=== PATIENT | female | born 1995 | race African-American/Black ===

== ENCOUNTER 2017-01-18 11:48 | Emergency (ER) | payer BC ==
[2017-01-18 11:54] VITALS: BP 98/78
[2017-01-18] MEDS ORDERED: Lidocaine 1%* 5 ML VIAL ONE (12:00)
--- NOTE | 2017-01-18 12:43 | RAD ---
Indication: Crush injury RIGHT index finger from the DIP distal tip. Comparison: No relevant prior exams available on the [facility] PACS for comparison. Technique: 3 views RIGHT second finger REPORT AND IMPRESSION: Negative for fracture or malalignment. Unremarkable soft tissue contours. No conspicuous foreign body.
--- NOTE | 2017-01-18 13:02 | ED ---
Upper Extremity Pain - HPI Summary HPI Summary: Patient presents to the ED after crushing her right distal fingertip in the garage door. She notes to immediate pain. Injury occurred 30 minutes prior to arrival. Pain is 5/10, constant and throbbing. No lesions or disruptions in the skin. She has never injured the digit before. Pulses +2 bilaterally and cap refill < 2 sec. Denies numbness, tingling, temperature or color changes to the area. No swelling noted. She has full ROM and is able to move the digit at the PIP and DIP joints with minimal discomfort. - History of Current Complaint Chief Complaint: EDExtremityUpper Stated Complaint: FINGER INJURY Time Seen by Provider: 01/18/17 12:22 Hx Obtained From: Patient Mechanism Of Injury: Direct Blow Onset/Duration: Started Minutes Ago Timing: Constant Severity Initially: Mild Severity Currently: Mild Pain Location: Finger Character: Aching, Throbbing Aggravating Factor(s): Movement, Lifting, Flexion, Extension Alleviating Factor(s): Rest, Ice Associated Signs & Symptoms: Positive: Negative - Risk Factors Non-Orthopedic Risk Factor: Negative DVT Risk Factors: Negative Septic Arthritis Risk Factor: Negative Compartment Syndrome Risk Factors: Pain PMH/Surg Hx/FS Hx/Imm Hx Previously Healthy: Yes - Immunization History Hx Pertussis Vaccination: No Immunizations Up to Date: Unable to Obtain/Confirm Infectious Disease History: No Infectious Disease History: Denies: Traveled Outside the [place] in Last 30 Days - Social History Occupation: Student Lives: With Family Alcohol Use: None Hx Substance Use: No Substance Use Type: Reports: None Hx Tobacco Use: No Smoking Status (MU): Never Smoked Tobacco Review of Systems Constitutional: Negative Eyes: Negative ENT: Negative Cardiovascular: Negative Genitourinary: Negative Positive: see HPI Positive: Arthralgia - right index distal finger tip Skin: Negative All Other Systems Reviewed And Are Negative: Yes Physical Exam Triage Information Reviewed: Yes Vital Signs On Initial Exam: Initial Vitals Temp Pulse Resp BP Pulse Ox 98.4 F 68 16 98/78 100 01/18/17 11:50 01/18/17 11:50 01/18/17 11:50 01/18/17 11:50 01/18/17 11:50 Completion Of Physical Exam Limited Due To: Dementia Appearance: Positive: Well-Appearing, Well-Nourished Skin: Positive: Warm, Skin Color Reflects Adequate Perfusion Head/Face: Positive: Normal Head/Face Inspection, Scalp Eyes: Positive: EOMI, JOSELYN Neck: Positive: Supple, No Lymphadenopathy Respiratory/Lung Sounds: Positive: Clear to Auscultation, Breath Sounds Present Cardiovascular: Positive: Normal, RRR, Pulses are Symmetrical in both Upper and Lower Extremities Musculoskeletal: Positive: Normal, Strength/ROM Intact, Pain @ - distal right finger DIP joint Neurological: Positive: Speech Normal Psychiatric: Positive: Normal Diagnostics - Vital Signs Vital Signs Temp Pulse Resp BP Pulse Ox 01/18/17 11:50 98.4 F 68 16 98/78 100 - Laboratory Lab Statement: Any lab studies that have been ordered have been reviewed, and results considered in the medical decision making process. Course/Dx - Course Course Of Treatment: Injury occurred 30 minutes prior to arrival. Pain is 5/10 , constant and throbbing. No lesions or disruptions in the skin. She has never injured the digit before. Pulses +2 bilaterally and cap refill < 2 sec. Denies numbness, tingling, temperature or color changes to the area. No swelling noted. She has full ROM and is able to move the digit at the PIP and DIP joints with minimal discomfort. REPORT AND IMPRESSION: Negative for fracture or malalignment. Unremarkable soft tissue. contours. No conspicuous foreign body. Patient is given a splint to allow for comfort. Encouraged ibuprofen and ice within limitations to prevent schultz bite. She will return for worsening symptoms. - Diagnoses Differential Diagnosis/HQI/PQRI: Positive: Contusion, Strain, Sprain Provider Diagnoses: Crush injury to finger Discharge - Discharge Plan Condition: Stable Disposition: HOME Patient Education Materials: Crush Injury (ED) Referrals: Non Staff,Doctor [Primary Care Provider] - Additional Instructions: Ibuprofen 600mg three times daily You may ice the area - no more than 5 minutes at a time Pain should begin to improve in 1-2 days
== END 2017-01-18 13:07 | disposition home or self-care (01) ==
LOC: ED 11:48
DX: S67.10XA Crushing injury of unspecified finger(s), initial encounter (principal); W23.0XXA Caught, crushed, jammed, or pinched between moving objects, initial encounter; Y93.89 Activity, other specified; Y92.89 Other specified places as the place of occurrence of the external cause
CPT/HCPCS: 73140; 99282